=== PATIENT | male | born 1995 | race Caucasian/White ===

== ENCOUNTER 2023-03-19 02:16 | Emergency (ER) | payer OTHER, SELFPAY ==
[2023-03-19 02:17] VITALS: BP 130/91; PULSE 61; RESP 18; TEMP 36.6; O2SAT 98; BMI 33.6
[2023-03-19 03:17] VITALS: BP 122/75; PULSE 59; RESP 16; TEMP 36.6; O2SAT 97
--- NOTE | 2023-03-19 04:00 | ED_ITS ---
HPI - Dental/Oral General Chief complaint: Dental/Oral Stated complaint: Dental pain Time Seen by Provider: 03/19/23 03:53 Source: patient Mode of arrival: ambulatory Limitations: no limitations History of Present Illness HPI Narrative: Patient comes to [facility] ED c/o left mandibular pain that started 2 days ago. Patient states that he has had it happen before 6 months, ago. Pt was given abx then, and mandibular pain and swelling resolved. Patient denies any trauma to the area. Related Data Previous Rx's Medication Instructions Recorded ketorolac 10 mg tablet 10 mg PO TID PRN pain #10 tabs 03/19/23 penicillin V potassium 500 mg 500 mg PO TID 10 days #29 tabs 03/19/23 tablet Allergies Allergy/AdvReac Type Severity Reaction Status Date / Time No Known Allergies Allergy Verified 03/19/23 03:56 Review of Systems Review of Systems: Constitutional : No Weight loss, No Fever, No Chills, No Night Sweats, No Fatigue, No Malaise ENT/Mouth : Complaining of dental pain left mandibular side, No Hearing loss, No Ear Pain, No Nasal Congestion, No Sinus Pain, No Hoarseness, No sore throat, No Rhinorrhea, No Swallowing Difficulty Eyes: No Eye Pain, No Swelling, No Redness, No Foreign Body, No Discharge, No Vision Changes Cardiovascular : No Chest Pain, No SOB, No Dyspnea on Exertion, No Orthopnea, No Edema, No Palpitations Respiratory : No Cough, No Sputum, No Wheezing, No Smoke Exposure, No Dyspnea Gastrointestinal : No Nausea, No Vomiting, No Diarrhea, No Constipation, No abdominal Pain, No Hematochezia, No Melena Genitourinary : no irregular bleeding, No Dysuria, No Urinary Frequency, No Hematuria, No Urinary Incontinence, No Urgency, No Flank Pain, No Urinary Flow Changes, No Hesitancy Musculoskeletal : No joint pain, No Myalgias, No Joint Swelling Skin : No Skin Lesions, No rash Neuro : No Weakness, No Numbness, No Paresthesias, No Loss of Consciousness, No Dizziness, No Headache Psych : No Anxiety/Panic, No Depression, No SI/HI/AH/VH, No Social Issues, Heme/Lymph: No Bruising, No Bleeding,No Lymphadenopathy Endocrine : No Polyuria, No Polydipsia, No Temperature Intolerance PMFSH Social History Social History Alcohol intake: never Smoked in Last 30 Days: No Use of substances other than those prescribed or required for medical reasons: Yes Substance Use Type: Marijuana Advance Directives: No Advance Directives Information Provided: Yes Physical Exam Vital Signs: Vital Signs: Last Vital Signs Temp 97.8 F 03/19/23 03:17 Pulse 59 03/19/23 03:17 Resp 16 03/19/23 03:17 BP 122/75 03/19/23 03:17 Pulse Ox 97 03/19/23 03:17 O2 Del Method Room Air 03/19/23 03:17 BMI result Body Mass Index 33.6 Const: Other: Appearance: Alert. Oriented X3. No acute distress. Eyes: Pupils equal, round and reactive to light. ENT: Pharynx normal. Gums erythematous especially on the left mandibular side, no visible abscess that could possibly be drained Neck: Normal inspection. Neck supple. No lymph nodes noted. No crepitus CVS: Normal heart rate and rhythm. Pulses normal. Normal S1 and S2 Respiratory: No respiratory distress. Breath sounds normal. No Wheezing. No rales Abdomen: Soft and nontender. No rigidity. No distention. Skin: Skin warm and dry. Normal skin color. Normal skin turgor. Extremities: No lower extremity edema. No Lacerations. No Rash Neuro: Oriented X 3. No motor deficit. No sensory deficit. Moving all extr emities. No slurred speech. CN 2 through 12 grossly intact Psych: calm, cooperative, normal affect Medical Decision Making Medical Decision Making MDM Narrative: -I discussed the physical exam with the patient, patient was given a dose of IM Toradol and p.o. penicillin. Patient will follow-up with his dentist. Differential Diagnosis Differential Diagnoses: The differential diagnosis associated with the presentation includes (Gingivitis, dental abscess, chipped tooth) Discharge Plan Discharge Clinical Impression: Toothache Patient Disposition: Home, Self-Care Instructions: Toothache (ED) Additional Instructions: Please follow-up with your primary care physician tomorrow. If you have any worsening or new symptoms, please return to the emergency room or call 911 Prescriptions: New ketorolac 10 mg tablet 10 mg PO TID PRN (Reason: pain) Qty: 10 0RF penicillin V potassium 500 mg tablet 500 mg PO TID 10 Days Qty: 29 0RF
[2023-03-19] MEDS: Ketorolac Tromethamine 60 MG/2 ML VIAL IM (04:03)
[2023-03-19] MEDS: Penicillin V Potassium 250 MG TABLET 500 MG PO (04:03)
== END 2023-03-19 04:20 | disposition home or self-care (01) ==
PROVIDERS: Emergency Provider Emergency Medicine; PCP Internal Medicine
DX: K08.89 Other specified disorders of teeth and supporting structures (principal)
CPT/HCPCS: 96372; 99284; J1885

== ENCOUNTER 2023-03-19 19:04 | Emergency (ER) | payer OTHER, SELFPAY ==
[2023-03-19 19:30] VITALS: BP 150/82; PULSE 77; RESP 18; TEMP 36; O2SAT 98; BMI 33.4
--- NOTE | 2023-03-19 19:32 | ED_ITS ---
HPI - Dental/Oral General Chief complaint: Dental/Oral Stated complaint: ?Infected tooth Time Seen by Provider: 03/19/23 19:32 Source: patient Mode of arrival: ambulatory Limitations: no limitations History of Present Illness MD Complaint: tooth pain Teeth map: 1. Onset (ago): day(s) (2) Duration: constant Severity: moderate Relieving factors: nothing Context: poor dental care Treatment prior to arrival: other (Patient was seen here earlier today at 04:00 was given Motrin and antibiotics started the antibiotics and Motrin although no symptomatic relief with the Motrin for his pain) Related Data Previous Rx's Medication Instructions Recorded ketorolac 10 mg tablet 10 mg PO TID PRN pain #10 tabs 03/19/23 oxycodone 5 mg tablet 5 mg PO Q6H PRN pain #14 tabs 03/19/23 penicillin V potassium 500 mg 500 mg PO TID 10 days #29 tabs 03/19/23 tablet Allergies Allergy/AdvReac Type Severity Reaction Status Date / Time No Known Allergies Allergy Verified 03/19/23 19:30 Review of Systems Review of Systems: Constitutional : No Fever, No Chills, No changes in PO intake, No difficulty speaking, no recent dental procedure, no heat or cold intolerance while eating, no recent face trauma, ENT/Mouth : + Dental pain, No Sore throat, No Jaw pain, No throat swelling, No swallowing difficulty, no change in voice, No facial swelling, no drooling, no trismus, no bleeding, no lacerations, no tongue swelling, gum swelling, Eyes: No Eye Pain, No periorbital Swelling Cardiovascular : No Chest Pain, No SOB Respiratory : No Cough, No Sputum, No Wheezing, No Smoke Exposure, No Dyspnea Gastrointestinal : No Nausea, No Vomiting, No Diarrhea Genitourinary : No Dysuria Musculoskeletal : No Myalgias Skin : No rash, no facial swelling or redness, Neuro : No Weakness, No Numbness, No Headache Yes all other systems are reviewed and are negative PMFSH Past Medical History Attestation statement: The following information was validated with the patient. Source: old records reviewed and nursing notes reviewed Social History Social History Alcohol intake: never Substance Use Type: Marijuana Advance Directives: No Advance Directives Information Provided: No Physical Exam Vital Signs: Vital Signs: Last Vital Signs Temp 96.8 F 03/19/23 19:30 Pulse 77 03/19/23 19:30 Resp 18 03/19/23 19:30 BP 150/82 H 03/19/23 19:30 Pulse Ox 98 03/19/23 19:30 O2 Del Method Room Air 03/19/23 19:30 BMI result Body Mass Index 33.4 vital signs have been reviewed as normal and appeared to be correct. Blood pressure normal. Heart rate normal. Respiration rate normal. Temperature normal. Oxygen saturation normal. Appearance: Alert. Oriented X3. No acute distress. Head: Normal external exam. Normocephalic. Atraumatic. Eyes: PERRLA. EOMI. Conjunctiva and sclera normal. Eyelids normal. ENT: EAC normal. TM's Normal. Pharynx normal. Uvula midline. Moist mucous membranes. No trismus noted. No drooling noted. No muffled voice noted. Dentition: Patient with some dental caries patient reports pain to left lower molar aspect. Mild erythema. No obvious fluctuance.. Gingival within normal limits. No fluctuance. Not consistent with peritonsillar abscess. Not consistent with dental abscess. No salivary duct obstruction noted. Neck: Normal inspection. Neck supple. FROM. No adenopathy. Thyroid Normal. No meningeal signs. No neck mass noted. Trachea midline. CVS: Normal heart rate and rhythm. Heart sound normal. No murmurs noted. Pulses normal throughout. Respiratory: No respiratory distress. Painless inspiration. Breath sounds normal. No wheezes/rales/rhonchi noted. Chest nontender. No accessory muscle usage noted or decreased air movement noted. Back: Full range of motion noted. Skin: Skin warm and dry. Normal skin color. Normal skin turgor. No rashes/lesions/lacerations noted. Extremities:Extremities exhibit normal range of motion. Extremities nontender. Neuro: Oriented X 3. No motor deficit. No sensory deficit. Reflexes normal. Course Course Course Narrative: 27-year-old male presenting to the ER with dental pain after he was seen here and prescribed antibiotics and Motrin no symptomatic relief. On exam he does have dental tenderness and some general erythema no obvious abscess. Not consistent with dental/gingival/peritonsillar abscess. Not consistent with Ludwigs angina. No trismus/drooling/stridor. Patient tolerates secretions wel l. No labs or imaging indicated. Will DC home with instructions to continue taking previously prescribed medications/antibiotics as prescribed and will at a few doses of oxycodone. Instructed to follow up with his dentist tomorrow. Patient understands agrees with this plan. Medical Decision Making External Record Review External record reviewed: Inpatient record, Office record, Outpatient record, Prior outpatient labs, Prior outpatient radiology, Primary care record and Outside ED record All prior labs/imaging/EKG and notes including patient's last visit here at 04:00 reviewed by myself Prescription Management I considered prescription management with: Pain Medication Social Determinants Patient?s care significantly limited by Social Determinants of Health including: Low income and Other Social Determinant of Health Discharge Plan Discharge Clinical Impression: Toothache Patient Disposition: Home, Self-Care Instructions: Toothache (ED) Prescriptions: New oxycodone 5 mg tablet 5 mg PO Q6H PRN (Reason: pain) Qty: 14 0RF Rx Instructions: Partial Fill upon patient request. No Action ketorolac 10 mg tablet 10 mg PO TID PRN (Reason: pain) Qty: 10 0RF penicillin V potassium 500 mg tablet 500 mg PO TID 10 Days Qty: 29 0RF Referrals: Raulito Paul III, MD [Primary Care Provider] - 1 day (and your dentist ) Stand Alone Forms: Work/School Release Interventions: ED Discharge Assessment Last Done: 03/19/23 19:38 Discharge Date/Time: 03/19/23 19:39
== END 2023-03-19 19:39 | disposition home or self-care (01) ==
PROVIDERS: Emergency Provider Emergency Medicine; PCP Internal Medicine
DX: K08.89 Other specified disorders of teeth and supporting structures (principal)
CPT/HCPCS: 99282

== ENCOUNTER 2023-03-20 02:15 | Emergency (ER) | payer OTHER, SELFPAY ==
[2023-03-20 02:22] VITALS: BP 141/85; PULSE 70; RESP 20; TEMP 36.3; O2SAT 95; BMI 34.7
--- NOTE | 2023-03-20 02:39 | ED.DENTAL ---
HPI - Dental/Oral General Chief complaint: Dental/Oral Stated complaint: dental pain, here yesterday Time Seen by Provider: 03/20/23 02:37 Source: patient Mode of arrival: ambulatory Limitations: no limitations History of Present Illness HPI Narrative: Patient comes to the emergency room complaining of dental pain. Patient was seen here yesterday for the same reason, given a prescription for penicillin and Toradol. Patient came a 2nd time earlier today, patient is complaining of ongoing pain, medications which to oxycodone. Patient returning a 3rd time today, complaining of ongoing pain. Requesting IM injection of Toradol which helped him yesterday. Related Data Previous Rx's Medication Instructions Recorded ketorolac 10 mg tablet 10 mg PO TID PRN pain #10 tabs 03/19/23 oxycodone 5 mg tablet 5 mg PO Q6H PRN pain #14 tabs 03/19/23 penicillin V potassium 500 mg 500 mg PO TID 10 days #29 tabs 03/19/23 tablet Allergies Allergy/AdvReac Type Severity Reaction Status Date / Time No Known Allergies Allergy Verified 03/20/23 02:22 Review of Systems Review of Systems: Constitutional : No Weight loss, No Fever, No Chills, No Night Sweats, No Fatigue, No Malaise ENT/Mouth : Complaining of dental pain, No Hearing loss, No Ear Pain, No Nasal Congestion, No Sinus Pain, No Hoarseness, No sore throat, No Rhinorrhea, No Swallowing Difficulty Eyes: No Eye Pain, No Swelling, No Redness, No Foreign Body, No Discharge, No Vision Changes Cardiovascular : No Chest Pain, No SOB, No Dyspnea on Exertion, No Orthopnea, No Edema, No Palpitations Respiratory : No Cough, No Sputum, No Wheezing, No Smoke Exposure, No Dyspnea Gastrointestinal : No Nausea, No Vomiting, No Diarrhea, No Constipation, No abdominal Pain, No Hematochezia, No Melena Genitourinary : no irregular bleeding, No Dysuria, No Urinary Frequency, No Hematuria, No Urinary Incontinence, No Urgency, No Flank Pain, No Urinary Flow Changes, No Hesitancy Musculoskeletal : No joint pain, No Myalgias, No Joint Swelling Skin : No Skin Lesions, No rash Neuro : No Weakness, No Numbness, No Paresthesias, No Loss of Consciousness, No Dizziness, No Headache Psych : No Anxiety/Panic, No Depression, No SI/HI/AH/VH, No Social Issues, Heme/Lymph: No Bruising, No Bleeding,No Lymphadenopathy Endocrine : No Polyuria, No Polydipsia, No Temperature Intolerance [facility] Social History Social History Alcohol intake: never Substance Use Type: Marijuana Advance Directives: No Advance Directives Information Provided: No Physical Exam Vital Signs: Vital Signs: Last Vital Signs Temp 97.3 F 03/20/23 02:22 Pulse 70 03/20/23 02:22 Resp 20 03/20/23 02:22 BP 141/85 H 03/20/23 02:22 Pulse Ox 95 03/20/23 02:22 O2 Del Method Room Air 03/20/23 02:22 BMI result Body Mass Index 34.7 Const: Other: Appearance: Alert. Oriented X3. No acute distress. Eyes: Pupils equal, round and reactive to light. ENT: Pharynx normal. Erythema in the gums on the left mandible Neck: Normal inspection. Neck supple. No lymph nodes noted. No crepitus CVS: Normal heart rate and rhythm. Pulses normal. Normal S1 and S2 Respiratory: No respiratory distress. Breath sounds normal. No Wheezing. No rales Abdomen: Soft and nontender. No rigidity. No distention. Skin: Skin warm and dry. Normal skin color. Normal skin turgor. Extremities: No lower extremity edema. No Lacerations. No Rash Neuro: Oriented X 3. No motor deficit. No sensory deficit. Moving all extremities. No slurred speech. CN 2 through 12 grossly intact Psych: calm, cooperative, normal affect Medical Decision Making Medical Decision Making MDM Narrative: -patient already has a prescription of oxycodone and Toradol. No further prescriptions indicated at this time. Patient requesting IM Toradol which was given to him. -no abscess visualized the could be drained. Differential Diagnosis Differential Diagnoses: The differential diagnosis associated with the presentation includes (Dental pain, dental abscess, chipped tooth) Discharge Plan Discharge Clinical Impression: Toothache Patient Disposition: Home, Self-Care Instructions: Toothache (ED) Additional Instructions: Please follow-up with your primary care physician and dentist tomorrow. If you have any worsening or new symptoms, please return to the emergency room or call 911 Prescriptions: No Action ketorolac 10 mg tablet 10 mg PO TID PRN (Reason: pain) Qty: 10 0RF penicillin V potassium 500 mg tablet 500 mg PO TID 10 Days Qty: 29 0RF oxycodone 5 mg tablet 5 mg PO Q6H PRN (Reason: pain) Qty: 14 0RF Rx Instructions: Partial Fill upon patient request.
[2023-03-20] MEDS: Ketorolac Tromethamine 60 MG/2 ML VIAL IM (03:36)
== END 2023-03-20 03:42 | disposition home or self-care (01) ==
PROVIDERS: Emergency Provider Emergency Medicine
DX: K08.89 Other specified disorders of teeth and supporting structures (principal); F12.90 Cannabis use, unspecified, uncomplicated
CPT/HCPCS: 96372; 99283; 99284; J1885

== ENCOUNTER 2023-03-20 16:29 | Emergency (ER) | payer OTHER, SELFPAY ==
[2023-03-20 18:47] VITALS: BP 123/84; PULSE 70; RESP 16; TEMP 36.8; O2SAT 97; BMI 34.7
--- NOTE | 2023-03-20 18:48 | ED_ITS ---
HPI - General Adult General Chief complaint: Dental/Oral Stated complaint: dental pain Time Seen by Provider: 03/20/23 18:58 Source: patient and RN notes reviewed Mode of arrival: ambulatory Limitations: no limitations History of Present Illness HPI narrative: This is a 27-year-old male, with no significant past medical history, presenting to the emergency department with complaints of left lower dental pain x3 days. Patient states that he went to his dentist today where they did not perform any dental x-rays. He was hoping that he did have dental x-rays performed today. He has been taking Augmentin, ibuprofen and Tylenol without any relief. Denies any fevers or chills. No other complaints or concerns this time. MD complaint: Dental pain Onset (ago): day(s) Location: mouth Severity: moderate Quality: stabbing and aching Pain Consistency: constant Relieving factors: none Exacerbating factors: none Associated symptoms: denies other symptoms Treatments prior to arrival: none Related Data Previous Rx's Medication Instructions Recorded ketorolac 10 mg tablet 10 mg PO TID PRN pain #10 tabs 03/19/23 oxycodone 5 mg tablet 5 mg PO Q6H PRN pain #14 tabs 03/19/23 penicillin V potassium 500 mg 500 mg PO TID 10 days #29 tabs 03/19/23 tablet Allergies Allergy/AdvReac Type Severity Reaction Status Date / Time No Known Allergies Allergy Verified 03/20/23 02:22 Review of Systems Review of Systems: Constitutional: No Weight loss, No Fever, No Chills ENT/Mouth: No Ear Pain, No Nasal Congestion, No Sinus Pain, No Hoarseness, No sore throat, No Rhinorrhea, No Swallowing Difficulty Cardiovascular: No Chest Pain, No SOB Respiratory: No Cough, No Sputum, No Wheezing Gastrointestinal: No Nausea, No Vomiting, No Diarrhea, No Constipation, No Abdominal pain Genitourinary: No Dysuria, No Urinary Frequency, No Hematuria, No Urinary Incontinence/retention, No Urgency, No Flank Pain Musculoskeletal: No joint pain, No Myalgias, No Joint Swelling Skin: No Skin Lesions, No rash Neuro: No Weakness, No Numbness, No Paresthesias PMFSH Social History Social History Alcohol intake: never Substance Use Type: Marijuana Advance Directives: No Advance Directives Information Provided: Yes Physical Exam ED Vital Signs: Vital Signs - 24 hr 03/20/23 18:47 Temperature 98.3 F Pulse Rate 70 Respiratory Rate 16 Blood Pressure 123/84 Pulse Oximetry 97 Oxygen Delivery Method Room Air BMI result Body Mass Index 34.7 Const Other: General: Awake, alert, and oriented X3. No acute distress. HEENT: Normal inspection CVS: Normal heart rate and rhythm. Pulses normal. Respiratory: No respiratory distress Skin: Warm, dry, no rashes noted to exposed skin. Normal skin color. Normal skin turgor. Extremities: Normal to inspection Neuro: Oriented X 3. No motor deficit. No sensory deficit. [facility] Teeth image: 1. Tenderness palpation along the tooth 18. No gum erythema, fluctuance or tenderness. No evidence of dental abscess or dental decay. Course Course Course Narrative: This is an RME: Additional HPI, ROS, PE not included below will be deferred to primary provider. This is a [id number] presenting to the emergency department with complaints of continued dental pain. He was seen yesterday two times and then was seen by the dentist today where he was given a prescription for oxycodone and augmentin. VSS. Medical Decision Making Medical Decision Making MDM Narrative: 27-year-old male presenting to the emergency department for evaluation of left lower dental pain x 4 days. Patient has been seen here twice in the course of the last day for the same problem. He was seen by his dentist today but did not have any dental x-rays performed. He is hoping he these performed today. Patient has no evidence of dental decay or dental abscess on examination today, has already been taking ibuprofen, Tylenol, and Augmentin. Advised to continue taking these medications. I also advised patient that we do not routinely perform dental x-rays and that he should follow-up with his dentist. Also advised to get mouth guard as dentist's reported that he does grind his teeth that night when this will offer him. Vital signs stable, patient is afebrile. Patient stable for discharge. Differential Diagnosis Differential Diagnoses: The differential diagnosis associated with the presentation includes Dental decay, dental fracture, dental abscess, TMJ Discharge Plan Discharge Clinical Impression: Toothache Patient Disposition: Home, Self-Care Instructions: Toothache (ED) Additional Instructions: Please continue taking ibuprofen and Tylenol as directed. Continue taking your antibiotic. Finish the entire course even if your feeling better. Follow-up with your dentist tomorrow. He may want to get a mouth guard as this will help protect the surface of your teeth. If any new or worsening symptoms occur including but not limited to fevers, chills, worsening pain, please return for re-evaluation. Prescriptions: No Action ketorolac 10 mg tablet 10 mg PO TID PRN (Reason: pain) Qty: 10 0RF penicillin V potassium 500 mg tablet 500 mg PO TID 10 Days Qty: 29 0RF oxycodone 5 mg tablet 5 mg PO Q6H PRN (Reason: pain) Qty: 14 0RF Rx Instructions: Partial Fill upon patient request. Interventions: ED Discharge Assessment Last Done: 03/20/23 19:10
== END 2023-03-20 19:10 | disposition home or self-care (01) ==
PROVIDERS: Emergency Provider Emergency Medicine
DX: K08.89 Other specified disorders of teeth and supporting structures (principal); F12.90 Cannabis use, unspecified, uncomplicated
CPT/HCPCS: 99282